=== PATIENT | male | born 1995 | race Caucasian/White ===

== ENCOUNTER 2019-01-06 10:56 | Emergency (ER) | payer SELFPAY ==
[~2019-01-06] VITALS: Ht 172.7 cm; Wt 103.3 kg
[~2019-01-06 10:56] MED LIST: BEN25 PO; IBUP-1542 PO
[2019-01-06 11:00] VITALS: BP 134/81; PULSE 91; RESP 18; Ht 172.7 cm; Wt 103.3 kg
[2019-01-06] MEDS ORDERED: KETOROLAC 30 MG INJ IM STA (11:50)
[2019-01-06] MEDS ORDERED: METOCLOPRAMIDE 10 MG TAB PO ONE (12:00)
[2019-01-06] MEDS ORDERED: DIPHENHYDRAMINE 25 MG CAP PO ONE (12:00)
--- NOTE | 2019-01-06 12:09 | ERD ---
ER Documentation Chief Complaint Chief Complaint headache and fever x 4 days HPI 23-year-old male with no reported past medical history who presents with complaint of bitemporal headache past 4 days. States he has subjective fever at home but at time of his presentation patient is afebrile and does not report taking any anti-pyretic medications. His headache has been associated with intermittent nausea but no episodes of vomiting. He denies any neck stiffness, blurry vision, double vision, recent illness, sinus pressure or pain, or any other concerning symptoms. Time of evaluation patient nontoxic-appearing participatory in exam. He has tried Advil and Tylenol without much help in his symptoms. ROS All systems reviewed and are negative except as per history of present illness. Medications Home Meds Active Scripts Diphenhydramine Hcl* (Benadryl*) 25 Mg Cap, 25 MG PO Q6, #30 CAP Prov:JEUDINEANUHO PA-C 01/06/19 Ibuprofen* (Motrin*) 600 Mg Tab, 600 MG PO Q6, #30 TAB Prov:JEUDINE,GETHO PA-C 01/06/19 Ibuprofen* (Motrin*) 600 Mg Tab, 600 MG PO Q6H PRN for PAIN AND OR ELEVATED TEMP, #30 Prov:MARCELLE FONTANEZ NP 11/11/14 Allergies Allergies: Coded Allergies: No Known Drug Allergies (Verified Allergy, Unknown, 01/06/19) PMhx/Soc Medical and Surgical Hx: pt denies Medical Hx, pt denies Surgical Hx History of Surgery: No Anesthesia Reaction: No Hx Neurological Disorder: No Hx Respiratory Disorders: No Hx Cardiac Disorders: No Hx Psychiatric Problems: No Hx Alcohol Use: Yes (OCCASSIONAL) Hx Substance Use: No Hx Tobacco Use: Yes Smoking Status: Current every day smoker FmHx Family History: No diabetes, No coronary disease, No other Physical Exam Vitals Vital Signs Date Temp Pulse Resp B/P (MAP) Pulse Ox O2 O2 Flow FiO2 Time Delivery Rate 01/06/19 98.8 91 18 134/81 99 11:00 (98) Physical Exam I have reviewed the triage vital signs. Const: Well nourished, well developed, appears stated age Eyes: PERRL, no conjunctival injection HENT: NCAT, Neck supple without meningismus, no paraspinal tenderness, full range of motion to neck CV: RRR, Warm, well-perfused extremities RESP: CTAB, Unlabored respiratory effort GI: soft, non-tender, non-distended, no masses MSK: No gross deformities appreciated Skin: Warm, dry. No rashes Neuro: grossly non focal Psych: Appropriate mood and affect. Results 24 hrs Current Medications Medications Dose Sig/Clive Start Time Status Last (Trade) Ordered Route PRN Stop Time Admin Dose Reason Admin Ketorolac 30 mg ONCE STAT 01/06/19 DC 01/06/19 Tromethamine IM 11:50 01/06/19 12:02 (Toradol) 11:52 10 mg ONCE ONCE 01/06/19 DC 01/06/19 Metoclopramid PO 12:00 01/06/19 12:02 e HCl 12:04 (Reglan) 25 mg ONCE ONCE 01/06/19 DC Diphenhydrami PO 12:00 01/06/19 ne HCl 12:04 (Benadryl) 10 mg ONCE ONCE 01/06/19 DC Metoclopramid IM 12:30 01/06/19 e HCl 12:30 (Reglan) Procedures/MDM This patient presents with a headache most consistent with primary type . Di fferential diagnosis includes migraine versus tension type headache. No headache red flags. Neurologic exam without evidence of meningismus, focal neurologic findings. Presentation not consistent with acute intracranial bleed to include SAH (lack of risk factors, headache history). Presentation not consistent with acute [employer] infection to include meningitis or brain abscess, Temporal arteritis unlikely, as is acute angle closure glaucoma given history and physical findings. Presentation not consistent with other acute, emergent causes of headache at this time. Plan to treat symptomatically with pain medication. No indication for imaging/LP at this time. ED course: Toradol, Reglan, Benadryl not given as patient driving, will discharge with NSAIDs, Benadryl DISPOSITION PLAN: We discussed follow up with the patient's primary care doctor within 24 to 48 hours. Patient counseled regarding my diagnostic impression and care plan. Prior to discharge all questions answered. Pt agrees with treatment plan and understands strict return precautions. Precautionary instructions provided including instructions to return to the ER if not improving or for any worsening or changing symptoms or concerns. Disclaimer: Inadvertent spelling and grammatical errors are likely due to EHR/dictation software use and do not reflect on the overall quality of patient care. Also, please note that the electronic time recorded on this note does not necessarily reflect the actual time of the patient encounter. Departure Diagnosis: Primary Impression: Headache Condition: Stable Patient Instructions: Self-Care for Headaches Referrals: DAYANA HILL (PCP) Additional Instructions: Call your primary care doctor TOMORROW for an appointment during the next 2-3 days.See the doctor sooner or return here if your condition worsens before your appointment time. NATALIIA SABA PA-C Jan 06, 2019 12:09
[2019-01-06] MEDS ORDERED: METOCLOPRAMIDE 10 MG INJ IM ONE (12:30)
== END 2019-01-06 12:37 | disposition home or self-care (01) ==
LOC: FTE 10:56
DX: R51 Headache (principal); F17.210 Nicotine dependence, cigarettes, uncomplicated
CPT/HCPCS: 96372; 99284; J1885